=== PATIENT | male | born 1985 | race Caucasian/White ===

== ENCOUNTER 2016-12-14 22:30 | Emergency (ER) | payer MEDICAID ==
[~2016-12-14] VITALS: Ht 170.2 cm; Wt 87.0 kg
[~2016-12-14 22:30] MED LIST: IBUP-1542 PO; NAPR-260 PO
[2016-12-14 22:38] VITALS: Ht 170.2 cm; Wt 87.0 kg
[2016-12-15] MEDS ORDERED: KETOROLAC 60 MG INJ IM STA (01:16)
--- NOTE | 2016-12-15 01:38 | ERD ---
ER Documentation Chief Complaint Date/Time DATE: 12/15/16 TIME: 01:36 Chief Complaint LEFT FOOT PAIN 2 DAYS DENIES TRAUMA OF FALL NO SWELLING HPI 31-year-old male presents here in emergency department for complaints of left foot pain for 2 days. Patient has had this foot pain for years now, has been having on-and-off for the last 2 years. Patient discussed pain as sharp pain, 6/ 10 scale, is worse upon movement, denies any swelling. Patient denies any trauma and affected area. Patient denies any numbness or tingling. Patient denies any fever or chills. Patient did not take any medications to help with symptoms. ROS All systems reviewed and are negative except as per history of present illness. Medications Home Meds Active Scripts Naproxen* (Naprosyn*) 500 Mg Tablet, 500 MG PO BID Y for PAIN AND/OR INFLAMMATION, #30 TAB Prov:KALPANA CAMPOS PA-C 05/20/16 Ibuprofen* (Motrin*) 600 Mg Tab, 600 MG PO Q6, #30 TAB Prov:VIANCA SOLOMON PA-C 02/13/16 Allergies Allergies: Coded Allergies: No Known Allergy (Unverified , 02/13/16) PMhx/Soc Medical and Surgical Hx: pt denies Medical Hx, pt denies Surgical Hx Hx Alcohol Use: No Hx Substance Use: No Hx Tobacco Use: Yes Smoking Status: Current some day smoker FmHx Family History: No coronary disease, No diabetes, No other Physical Exam Vitals Vital Signs Date Time Temp Pulse Resp B/P Pulse Ox O2 Delivery O2 Flow Rate FiO2 12/14/16 22:38 98.0 69 18 144/76 98 Physical Exam GENERAL: The patient is well developed and appropriate for usual state of health, in no apparent distress. CHEST: Clear to auscultation bilaterally. There are no rales, wheezes or rhonchi. HEART: Regular rate and rhythm. No murmurs, clicks, rubs or gallops. No S3 or S4. ABDOMEN: Soft, nontender and nondistended. Good bowel sounds. No rebound or guarding. No gross peritonitis. No gross organomegaly or masses. No Nunez sign or McBurney point tenderness. BACK: No midline or flank tenderness. EXTREMITIES: Noted tenderness on palpation on the lateral aspect of the dorsal foot area, no swelling noted. Equal pulses bilaterally. Full range of motion of other joints of the body. Grossly neurovascularly intact. NEURO: Alert and oriented. Cranial nerves 2-12 intact. Motor strength in all 4 extremities with 5/5 strength. Sensation grossly intact. Normal speech and gait. SKIN: There is no apparent rash or petechia. The skin is warm and dry. HEMATOLOGIC AND LYMPHATIC: There is no evidence of excessive bruising or lymphedema. No gross cervical, axillary, or inguinal lymphadenopathy. Results 24 hrs Current Medications Medications (Trade) Dose Ordered Sig/Claribel Route PRN Reason Start Time Stop Time Status Last Admin Dose Admin Ketorolac Tromethamine (Toradol) 60 mg ONCE STAT IM 12/15/16 01:16 12/15/16 01:17 DC 12/15/16 01:27 Patient was given medication for pain here in emergency department, after treatment, patient verbalized feeling much better. Patient's pain is improved. PROCEDURE: XR Left Foot. CLINICAL INDICATION: Pain TECHNIQUE: AP, lateral and oblique views of the left foot was obtained. The images were reviewed on a PACS workstation. COMPARISON: None. FINDINGS: There are no fractures. Joint relationships are maintained. Bone mineralization is within normal limits. Soft tissues are unremarkable. IMPRESSION: No acute abnormality. RPTAT: HMVK .Lew Cheek MD, MD Date Time Electronically viewed and signed by .Lew Cheek MD, on 12/15/2016 02:26 .K/ CC: PEEWEE ALLEN CLOTH SHRINKING MACHINE OPERATOR Procedures/MDM Medical Decision Making: Patient's pain is most likely consistent with a contusion or a sprain. There is no suspicion for neurovascular compromise. Patient has intact sensation and circulation of the affected extremity. There is low suspicion for septic arthritis. Patient does not have any fever. Radiology exams of the affected area does not show any fracture or dislocation. Disposition: Home. Patient is given prescription for naproxen for pain, tramadol for severe pain. Patient was advised to elevate the affected area and apply ice on affected area. Patient was advised that if symptoms are worse, numbness, tingling, high fever, unable to move joint, worsening symptoms, to return to emergency department immediately. Otherwise, patient is advised to follow up with the primary care doctor in 5-7 days for reevaluation of symptoms. Departure Diagnosis: Primary Impression: Foot pain Laterality: left Qualified Code: M79.672 - Left foot pain Condition: Stable Patient Instructions: Contusion, Foot Additional Instructions: Patient is given prescription for ibuprofen for pain, tramadol for severe pain. Patient was advised to elevate the affected area and apply ice on affected area. Patient was advised that if symptoms are worse, numbness, tingling, high fever, unable to move joint, worsening symptoms, to return to emergency department immediately. Otherwise, patient is advised to follow up with the primary care doctor in 5-7 days for reevaluation of symptoms. PEEWEE ALLEN NP Dec 15, 2016 01:38
--- NOTE | 2016-12-15 02:27 | RADRPT ---
PROCEDURE: XR Left Foot. CLINICAL INDICATION: Pain TECHNIQUE: AP, lateral and oblique views of the left foot was obtained. The images were reviewed on a PACS workstation. COMPARISON: None. FINDINGS: There are no fractures. Joint relationships are maintained. Bone mineralization is within normal l imits. Soft tissues are unremarkable. IMPRESSION: No acute abnormality. RPTAT: HMVK .Lew Cheek MD, MD Date Time Electronically viewed and signed by .Lew Cheek MD, on 12/15/2016 02:26 .K/
[2016-12-15] MEDS ORDERED: TRAM50TA2 PO (02:45)
[2016-12-15] MEDS ORDERED: NAPR-260 PO (02:45)
[2016-12-15 02:51] VITALS: BP 132/82; PULSE 72; RESP 17; TEMP 98.7
== END 2016-12-15 02:52 | disposition home or self-care (01) ==
LOC: FTE 22:30
DX: M79.672 Pain in left foot (principal); F17.210 Nicotine dependence, cigarettes, uncomplicated
CPT/HCPCS: 73630; 96372; J1885; Z7502

== ENCOUNTER 2017-04-04 20:31 | Emergency (ER) | payer MEDICAID ==
[~2017-04-04] VITALS: Ht 170.2 cm; Wt 86.3 kg
[~2017-04-04 20:31] MED LIST changes: +TRAM50TA2 PO
[2017-04-04 20:34] VITALS: Ht 170.2 cm; Wt 86.3 kg
[2017-04-04] MEDS ORDERED: IBUP-1542 PO (20:47)
[2017-04-04] MEDS ORDERED: TRAM50TA2 PO (20:47)
--- NOTE | 2017-04-04 20:56 | ERD ---
ER Documentation Chief Complaint Date/Time DATE: 04/04/17 TIME: 20:54 Chief Complaint worsening chronic lt foot pain HPI 31-year-old male presents to emergency department for complaints of pain in the left foot, plantar area for years now, worse in the last 2 days, patient works in maintenance, has been walking a lot at work, patient does admit to using flat soled shoes. Patient has been having this type of pain before, had previous x-rays done and was told to be normal. Patient describes the pain as throbbing pain, 6/10 scale, is worse upon walking. Patient denies any fever or chills. Patient denies any redness or swelling. ROS All systems reviewed and are negative except as per history of present illness. Medications Home Meds Active Scripts Tramadol HCl (Tramadol HCl) 50 Mg Tablet, 50 MG PO Q6 Y for SEVERE PAIN LEVEL 7- 10, #20 TAB Prov:PEEWEE ALLEN NP 04/04/17 Ibuprofen* (Motrin*) 600 Mg Tab, 600 MG PO Q6H Y for PAIN AND OR ELEVATED TEMP, #30 TAB Prov:PEEWEE ALLEN NP 04/04/17 Tramadol HCl (Tramadol HCl) 50 Mg Tablet, 50 MG PO Q6 Y for SEVERE PAIN LEVEL 7- 10, #20 TAB Prov:PEEWEE ALLEN NP 12/15/16 Naproxen* (Naprosyn*) 500 Mg Tablet, 500 MG PO BID Y for PAIN AND/OR INFLAMMATION, #30 TAB Prov:PEEWEE ALLEN NP 12/15/16 Naproxen* (Naprosyn*) 500 Mg Tablet, 500 MG PO BID Y for PAIN AND/OR INFLAMMATION, #30 TAB Prov:KALPANA CAMPOS PA-C 05/20/16 Ibuprofen* (Motrin*) 600 Mg Tab, 600 MG PO Q6, #30 TAB Prov:VIANCA SOLOMON PA-C 02/13/16 Allergies Allergies: Coded Allergies: No Known Allergy (Unverified , 04/04/17) PMhx/Soc Medical and Surgical Hx: pt denies Medical Hx, pt denies Surgical Hx History of Surgery: No Anesthesia Reaction: No Hx Neurological Disorder: No Hx Respiratory Disorders: No Hx Cardiac Disorders: No Hx Psychiatric Problems: No Hx Miscellaneous Medical Probl: No Hx Alcohol Use: Yes (social) Hx Substance Use: No Hx Tobacco Use: Yes Smoking Status: Never smoker FmHx Family History: No coronary disease, No diabetes, No other Physical Exam Vitals Vital Signs Date Time Temp Pulse Resp B/P Pulse Ox O2 Delivery O2 Flow Rate FiO2 04/04/17 20:34 98.1 76 18 141/87 96 Physical Exam GENERAL: The patient is well developed and appropriate for usual state of health, in no apparent distress. CHEST: Clear to auscultation bilaterally. There are no rales, wheezes or rhonchi. HEART: Regular rate and rhythm. No murmurs, clicks, rubs or gallops. No S3 or S4. ABDOMEN: Soft, nontender and nondistended. Good bowel sounds. No rebound or guarding. No gross peritonitis. No gross organomegaly or masses. No Nunez sign or McBurney point tenderness. BACK: No midline or flank tenderness. EXTREMITIES: Tenderness on palpation on the plantar aspect of the left foot, most on the plantar fascia area. No erythema noted, no swelling noted. No deformity noted. Full range of motion of the left foot. Equal pulses bilaterally. Full range of motion of other joints of the body. Grossly neurovascularly intact. NEURO: Alert and oriented. Cranial nerves 2-12 intact. Motor strength in all 4 extremities with 5/5 strength. Sensation grossly intact. Normal speech and gait. SKIN: There is no apparent rash or petechia. The skin is warm and dry. HEMATOLOGIC AND LYMPHATIC: There is no evidence of excessive bruising or lymphedema. No gross cervical, axillary, or inguinal lymphadenopathy. Results 24 hrs PROCEDURE: XR Left Foot. CLINICAL INDICATION: Pain TECHNIQUE: AP, lateral and oblique views of the left foot was obtained. The images were reviewed on a PACS workstation. COMPARISON: None. FINDINGS: There are no fractures. Joint relationships are maintained. Bone mineralization is within normal limits. Soft tissues are unremarkable. IMPRESSION: No acute abnormality. RPTAT: HMVK .Lew Cheek MD, MD Date Time Electronically viewed and signed by .Lew Cheek MD, on 12/15/2016 02:26 .K/ CC: PEEWEE ALLEN NP Procedures/MDM Medical Decision Making: Patient's pain is most likely consistent with a plantar fasciitis. There is no suspicion for neurovascular compromise. Patient has intact sensation and circulation of the affected extremity. There is low suspicion for septic arthritis. Patient does not have any fever. Radiology exams done previously of the affected area does not show any fracture or dislocation. Repeat exam is not indicated at this time. No trauma involved. Disposition: Home. Patient is given prescription for ibuprofen for pain, tramadol. Patient was advised to elevate the affected area and apply ice on affected area. Patient was advised that if symptoms are worse, numbness, tingling, high fever, unable to move joint, worsening symptoms, to return to emergency department immediately. Otherwise, patient is advised to follow up with the primary care doctor in 5-7 days for reevaluation of symptoms. Use plantar fasciitis splint at night, used arch supported shoes when walking. Departure Diagnosis: Primary Impression: Plantar fasciitis of left foot Condition: Stable Patient Instructions: What Is Plantar Fasciitis?, Treating Plantar Fasciitis, Plantar Fasciitis Additional Instructions: get arch support and get plantar fascitis splint PEEWEE ALLEN NP Apr 04, 2017 20:56
== END 2017-04-04 21:02 | disposition home or self-care (01) ==
LOC: FTE 20:31
DX: M72.2 Plantar fascial fibromatosis (principal); Z87.891 Personal history of nicotine dependence
CPT/HCPCS: 99283

== ENCOUNTER 2018-03-15 09:37 | Emergency (ER) | END 2018-03-15 11:53 | disposition home or self-care (01) ==

== ENCOUNTER 2018-04-21 21:06 | Emergency (ER) | END 2018-04-22 01:38 | disposition home or self-care (01) ==

== ENCOUNTER 2018-06-24 14:45 | Emergency (ER) | END 2018-06-24 15:30 | disposition home or self-care (01) ==

== ENCOUNTER 2018-08-08 10:16 | Emergency (ER) | END 2018-08-08 13:23 | disposition home or self-care (01) ==

== ENCOUNTER 2019-03-02 20:46 | Emergency (ER) | payer MEDICAID ==
[~2019-03-02] VITALS: Ht 170.2 cm; Wt 87.8 kg
[~2019-03-02 20:46] MED LIST changes: +ACET500C5 PO; +IBUP800T48 PO; +MECL12.574 PO; -NAPR-260 PO; +NAPR-985 PO; +ONDA4TAB8 PO
[2019-03-02 21:03] VITALS: Ht 170.2 cm; Wt 87.8 kg
[2019-03-02] MEDS ORDERED: IBUPROFEN 600 MG TAB PO ONE (23:30)
[2019-03-03] MEDS ORDERED: IBUP-1542 PO (00:59)
--- NOTE | 2019-03-03 01:03 | ERD ---
ER Documentation Chief Complaint Chief Complaint L lateral and heel foot pain 02/13 X 1 wk HPI Patient is a 33-year-old male who presents to the ER for concerns of left foot pain x1 week. Patient states pain is on the lateral aspect of his foot on his heel. Patient denies falls or trauma. 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 Patient denies any fevers or chills. Patient is able to ambulate with minimal difficulty. ROS All systems reviewed and are negative except as per history of present illness. Medications Home Meds Active Scripts Ibuprofen* (Motrin*) 600 Mg Tab, 600 MG PO Q6, #30 TAB Prov:RENEE CINTRON PA-C 03/03/19 Ibuprofen* (Motrin*) 600 Mg Tab, 600 MG PO Q6, #30 TAB Prov:VIANCA SOLOMON PA-C 08/08/18 Meclizine Hcl* (Antivert*) 12.5 Mg Tab, 12.5 MG PO Q6H PRN for DIZZINESS, #20 TAB Prov:IAN MARTINEZ F 06/24/18 Ondansetron Hcl* (Zofran*) 4 Mg Tablet, 4 MG PO Q8H PRN for NAUSEA AND/OR VOMITING, #30 TAB Prov:IAN MARTINEZ F 06/24/18 Ibuprofen* (Motrin*) 800 Mg Tab, 800 MG PO Q6H PRN for PAIN AND OR ELEVATED TEMP, #30 TAB Prov:IAN MARTINEZ F 06/24/18 Acetaminophen* (Tylophen*) 500 Mg Capsule, 1 CAP PO Q6H PRN for PAIN AND OR ELEVATED TEMP, #20 CAP Prov:SHERYLILAIAN AGUILA F 06/24/18 Acetaminophen* (Tylophen*) 500 Mg Capsule, 1 CAP PO Q6H PRN for PAIN AND OR ELEVATED TEMP, #20 CAP Prov:RENEE CINTRON PA-C 04/22/18 Ibuprofen* (Motrin*) 800 Mg Tab, 800 MG PO Q6, #30 TAB Prov:MERNA NORRIS PA-C 03/15/18 Tramadol HCl (Tramadol HCl) 50 Mg Tablet, 50 MG PO Q6 PRN for SEVERE PAIN LEVEL 7-10, #20 TAB Prov:PEEWEE ALLEN NP 04/04/17 Ibuprofen* (Motrin*) 600 Mg Tab, 600 MG PO Q6H PRN for PAIN AND OR ELEVATED TEMP, #30 TAB Prov:AMPAROTEEPEEWEE HSIEH GAMBLING CASHIER 04/04/17 Tramadol HCl (Tramadol HCl) 50 Mg Tablet, 50 MG PO Q6 PRN for SEVERE PAIN LEVEL 7-10, #20 TAB Prov:PEEWEE ALLEN GAMBLING CASHIER 12/15/16 Naproxen* (Naprosyn*) 500 Mg Tablet, 500 MG PO BID PRN for PAIN AND/OR INFLAMMA TION, #30 TAB Prov:PEEWEE ALLEN GAMBLING CASHIER 12/15/16 Naproxen* (Naprosyn*) 500 Mg Tablet, 500 MG PO BID PRN for PAIN AND/OR INFLAMMATION, #30 TAB Prov:KALPANA CAMPOS PA-C 05/20/16 Ibuprofen* (Motrin*) 600 Mg Tab, 600 MG PO Q6, #30 TAB Prov:VIANCA SOLOMON PA-C 02/13/16 Allergies Allergies: Coded Allergies: No Known Allergy (Unverified , 04/04/17) PMhx/Soc Medical and Surgical Hx: pt denies Medical Hx, pt denies Surgical Hx History of Surgery: No Anesthesia Reaction: No Hx Neurological Disorder: No Hx Respiratory Disorders: No Hx Cardiac Disorders: No Hx Psychiatric Problems: No Hx Miscellaneous Medical Probl: Yes (gout) Hx Alcohol Use: No Hx Substance Use: No Hx Tobacco Use: No Smoking Status: Never smoker FmHx Family History: No diabetes Physical Exam Vitals Vital Signs Date Temp Pulse Resp B/P (MAP) Pulse Ox O2 O2 Flow FiO2 Time Delivery Rate 03/02/19 98.2 95 18 147/87 100 21:03 (107) Physical Exam GENERAL: Well-developed, well-nourished male. Appears in no acute distress. HEAD: Normocephalic, atraumatic. EYES: Pupils are equally reactive bilaterally. EOMs grossly intact. No conjunctival erythema. ENT: Moist mucous membranes. No uvula deviation. No kissing tonsils. NECK: Supple. No meningismus. Normal range of motion of the neck. EXTREMITIES: Equal pulses bilaterally. No peripheral clubbing, cyanosis or edema. No unilateral leg swelling. NEUROLOGIC: Alert and oriented. Moving all four extremities without any difficulty. Normal speech. Steady gait. SKIN: Normal color. Warm and dry. No rashes or lesions. LLE: No deformity, erythema, ecchymosis or swelling. Normal range of motion of ankle and all toes. Tender to palpation over the lateral foot and the posterior heel.. Sensation intact to light touch. Neurovascularly intact. (Able to plantarflex, dorsiflex, merlyn foot, invert foot, raise big toe.) 2+ DP and DT pulses. Results 24 hrs Current Medications Medications Dose Sig/Claribel Start Time Status Last (Trade) Ordered Route PRN Stop Time Admin Dose Reason Admin Ibuprofen 600 mg ONCE ONCE 03/02/19 DC (Motrin) PO 23:30 03/02/19 23:31 Procedures/MDM ED COURSE: The patient was stable throughout ED course. I kept the patient and/or family informed of laboratory and diagnostic imaging results throughout the ED course. DIAGNOSTIC IMAGING: Read by radiologist. Patient: TURNER OCAMPO : 1985 Age: 33 Sex: M MR #: [id number] DOS: 03/02/19 2329 Ordering MD: RENEE CINTRON PA-C Location: [facility] Room/Bed: PROCEDURE: DX Foot CLINICAL INDICATION: 33-year-old male. Left foot pain. TECHNIQUE: 3 views. COMPARISON: Left foot x-ray 12/15/2016 FINDINGS: Osseous structures: Normal bone mineralization. No acute fracture. No lytic or blastic changes. Calcaneal osteophyte/s absent. Joint space: Mild chronic degenerative changes is present in the joint space between the tarsal navicular and the first cuneiform. Small osteophyte arises from the anterior distal tibia. Soft tissues: No soft tissue swelling. No radiopaque foreign body or soft tissue gas. IMPRESSION: 1. No acute fracture dislocation. 2. 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 RPTAT: HLRS Physician Bebo Date Time Electronically viewed and signed by Physician Bebo on 03/03/2019 00:47 RS/ CC: RENEE CINTRON PA-C [id number] MEDICAL DECISION MAKING: This is a 33-year-old male who presents the ER for concerns of left foot pain x1 week.. Vital signs were reviewed. Patient was afebrile. X-ray imaging was negative for fracture dislocation. See formal report above. At this time the patient presentation was consistent with foot pain secondary to arthritis. Low suspicion for ankle dislocation, tibia fracture, fibula fracture, ankle fracture, tarsal bone fracture, metatarsal fracture, phalangeal fracture, stress fracture, lisfranc injury, gout, septic joint, reactive arthritis, psoriatic arthritis, DVT, compartment syndrome, plantar fasciitis, diabetic neuropathy or pes planus. At this time, unable to rule out any tendon and ligament injuries. PRESCRIPTIONS: Ibuprofen DISCHARGE: At this time, patient is stable for discharge and outpatient management. RICE therapy and ROM exercises were advised to avoid stiffness. I have instructed the patient to follow-up with his/her primary care physician in 1-2 days. I have discussed with the patient the possibility of needing to see an orthopedic nurse practitioner for further workup and imaging if the pain persists. I have i nstructed the patient to promptly return to the ER for any new or worsening symptoms including increased pain, swelling, redness, warmth or fever. The patient and/or family expressed understanding of and agreement with this plan. All questions were answered. Home care instructions were provided. Disclaimer: Inadvertent spelling and grammatical errors are likely due to EHR/dictation software use and do not reflect on the overall quality of patient care. Also, please note that the electronic time recorded on this note does not necessarily reflect the actual time of the patient encounter. Departure Diagnosis: Primary Impression: Foot pain Laterality: left Qualified Codes: M79.672 - Pain in left foot Condition: Fair Patient Instructions: Sprain Foot Referrals: [facility] YOU HAVE RECEIVED A MEDICAL SCREENING EXAM AND THE RESULTS INDICATE THAT YOU DO NOT HAVE A CONDITION THAT REQUIRES URGENT TREATMENT IN THE EMERGENCY DEPARTMENT. FURTHER EVALUATION AND TREATMENT OF YOUR CONDITION CAN WAIT UNTIL YOU ARE SEEN IN YOUR DOCTORS OFFICE WITHIN THE NEXT 1-2 DAYS. IT IS YOUR RESPONSIBILITY TO MAKE AN APPOINTMENT FOR FOLOW-UP CARE. IF YOU HAVE A PRIMARY DOCTOR --you should call your primary doctor and schedule an appointment IF YOU DO NOT HAVE A PRIMARY DOCTOR YOU CAN CALL OUR PHYSICIAN REFERRAL HOTLINE AT IF YOU CAN NOT AFFORD TO SEE A PHYSICIAN YOU CAN CHOSE FROM THE FOLLOWING [facility] [address] [facility] [address] [facility] [address] [facility] [address] [facility] [address] [facility]. [facility] [address] [facility]. [facility] YOU HAVE RECEIVED A MEDICAL SCREENING EXAM AND THE RESULTS INDICATE THAT YOU DO NOT HAVE A CONDITION THAT REQUIRES URGENT TREATMENT IN THE EMERGENCY DEPARTMENT. FURTHER EVALUATION AND TREATMENT OF YOUR CONDITION CAN WAIT UNTIL YOU ARE SEEN IN YOUR DOCTORS OFFICE WITHIN THE NEXT 1-2 DAYS. IT IS YOUR RESPONSIBILITY TO MAKE AN APPOINTMENT FOR FOLOW-UP CARE. IF YOU HAVE A PRIMARY DOCTOR --you should call your primary doctor and schedule and appointment IF YOU DO NOT HAVE A PRIMARY DOCTOR YOU CAN CALL OUR PHYSICIAN REFERRAL HOTLINE AT . IF YOU CAN NOT AFFORD TO SEE A PHYSICIAN YOU CAN CHOSE FROM THE FOLLOWING [facility]: [facility] [address] [place] [address] [facility] [address] [place] [address] [facility] [address] [place] [address] [facility] 7 a.m.- 11 p.m. Every Day of the Week NO APPOINTMENT OR AUTHORIZATION NEEDED Additional Instructions: Call your primary care doctor TOMORROW for an appointment during the next 1-2 days.See the doctor sooner or return here if your condition worsens before your appointment time. RENEE CINTRON PA-C Mar 03, 2019 01:03
[2019-03-03 01:10] VITALS: BP 128/82; PULSE 70; RESP 16
== END 2019-03-03 01:10 | disposition home or self-care (01) ==
LOC: FTE 20:46
DX: M79.672 Pain in left foot (principal)
CPT/HCPCS: 73630; Z7502